=== PATIENT | female | born 1980 | race African-American/Black ===

== ENCOUNTER 2020-02-16 00:16 | Emergency (ER) | payer OTHER, MEDICAID ==
[~2020-02-16] VITALS: Ht 167.6 cm; Wt 84.8 kg
[2020-02-16] MEDS ORDERED: CLONAZEPAM 0.50.5 M1 PO (00:27)
[2020-02-16] MEDS ORDERED: CLONIDINE HCL0.2 M2 PO (00:27)
[2020-02-16] MEDS ORDERED: TRAZODONE 150150 M1 PO (00:27)
[2020-02-16] MEDS ORDERED: LATUDA80 MG PO (00:27)
[2020-02-16] MEDS ORDERED: AMLODIPINE BESY10 MG PO (00:28)
[2020-02-16] MEDS ORDERED: CYMBALTA60 MG PO (00:28)
[2020-02-16] MEDS ORDERED: PROZAC40 MG PO (00:28)
[2020-02-16] MEDS ORDERED: SPIRONOLACTONE25 MG PO (00:28)
[2020-02-16] MEDS ORDERED: CARVEDILOL12.5 MG PO (00:29)
[2020-02-16] MEDS ORDERED: LIPITOR40 MG PO (00:29)
[2020-02-16] MEDS ORDERED: METFORMIN HCL500 M3 PO (00:29)
[2020-02-16] MEDS ORDERED: XULTOPHY 100 UNI3 ML (00:30)
[2020-02-16] MEDS ORDERED: NOVOLOG100 UNIT/M SUBQ (00:30)
[2020-02-16] MEDS ORDERED: LOSARTAN/HCTZ PO (00:31)
[2020-02-16] MEDS ORDERED: CYCLOBENZAPRINE5 MG PO (01:53)
[2020-02-16] MEDS ORDERED: IBUPROFEN 800800 MG PO (01:53)
[2020-02-16 01:58] VITALS: BP 181/89
== END 2020-02-16 01:58 | disposition home or self-care (01) ==
LOC: M.ERS 00:16
DX: S20.211A Contusion of right front wall of thorax, initial encounter (principal); Z88.8 Allergy status to other drugs, medicaments and biological substances; I10 Essential (primary) hypertension; E11.9 Type 2 diabetes mellitus without complications; E78.00 Pure hypercholesterolemia, unspecified; Z90.711 Acquired absence of uterus with remaining cervical stump; X58.XXXA Exposure to other specified factors, initial encounter; Y93.72 Activity, wrestling; Y92.89 Other specified places as the place of occurrence of the external cause; Y99.8 Other external cause status

== ENCOUNTER 2021-02-07 08:53 | Emergency (ER) | payer OTHER, MEDICAID ==
[~2021-02-07] VITALS: Ht 170.2 cm; Wt 85.7 kg
[~2021-02-07 08:53] MED LIST: AMLODIPINE BESY10 MG PO; CARVEDILOL12.5 MG PO; CLONAZEPAM 0.50.5 M1 PO; CLONIDINE HCL0.2 M2 PO; CYCLOBENZAPRINE5 MG PO; CYMBALTA60 MG PO; IBUPROFEN 800800 MG PO; LATUDA80 MG PO; LIPITOR40 MG PO; LOSARTAN/HCTZ PO; METFORMIN HCL500 M3 PO; NOVOLOG100 UNIT/M SUBQ; PROZAC40 MG PO; SPIRONOLACTONE25 MG PO; TRAZODONE 150150 M1 PO; XULTOPHY 100 UNI3 ML
[2021-02-07 09:12] LABS: URINE BILIRUBIN NEGATIVE (Negative); URINE BLOOD TRACE (Negative); URINE CLARITY CLEAR; URINE COLOR YELLOW; URINE GLUCOSE-RANDOM 2+ (Negative); URINE KETONES NEGATIVE (Negative); URINE LEUKOCYTES-REFLEX NEGATIVE (Negative); URINE NITRITE-REFLEX NEGATIVE (Negative); URINE PROTEIN NEGATIVE (Negative); URINE UROBILINOGEN 0.2 E.U./dl (0.2-1.0)
[2021-02-07 09:20] LABS: ABSOLUTE BASOPHILS 0.2 thou/uL (0.0-0.2); ABSOLUTE EOSINOPHILS 0.1 thou/uL (0.0-0.7); ABSOLUTE LYMPHOCYTES 2.4 thou/uL (0.8-5.3); ABSOLUTE MONOCYTES 0.8 thou/uL (0.0-1.2); ABSOLUTE NEUTROPHILS 12.9 thou/uL (1.6-8.1); BASOPHILS 0.9 %; EOSINOPHILS 0.6 %; HEMATOCRIT 44.4 % (37.0-47.0); HEMOGLOBIN 15.1 gm/dL (12.0-15.0); LYMPHOCYTES 14.7 %; MCH 28.8 pg (26.0-34.0); MCHC 33.9 g/dL (28.0-37.0); MCV 84.9 fL (80.0-100.0); MPV 7.4 fl. (7.2-11.1); NUCLEATED RBCS 0 /100WBC; PLATELET COUNT* 405 thou/uL (150-400); POLYS 78.8 %; RBC 5.23 mil/uL (4.20-5.00); WBC 16.3 thou/uL (4.0-11.0)
[2021-02-07 09:25] LABS: CALCIUM 8.8 mg/dL (8.5-10.1); CREATININE 0.9 mg/dL (0.6-1.3); POTASSIUM 4.2 mmol/L (3.5-5.1)
[2021-02-07 09:29] LABS: ALBUMIN 3.6 g/dL (3.4-5.0); TOTAL BILIRUBIN 0.3 mg/dL (<0.1-1.0); TOTAL PROTEIN 8.2 g/dL (6.4-8.2)
[2021-02-07] MEDS ORDERED: HYDROCODON-ACE1 EAC7 PO (10:15)
[2021-02-07] MEDS ORDERED: ZOFRAN ODT4 MG SUBLING (10:15)
[2021-02-07 10:22] VITALS: BP 149/88
--- NOTE | 2021-02-07 16:15 | EKG ---
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
== END 2021-02-07 10:23 | disposition home or self-care (01) ==
LOC: M.ERS 08:53
PROVIDERS: Family Medicine
DX: R10.31 Right lower quadrant pain (principal); M54.5 Low back pain; R11.2 Nausea with vomiting, unspecified; I10 Essential (primary) hypertension; E11.9 Type 2 diabetes mellitus without complications; F31.9 Bipolar disorder, unspecified; E78.00 Pure hypercholesterolemia, unspecified; Z90.711 Acquired absence of uterus with remaining cervical stump; Z90.49 Acquired absence of other specified parts of digestive tract; Z79.899 Other long term (current) drug therapy; Z79.4 Long term (current) use of insulin; Z88.8 Allergy status to other drugs, medicaments and biological substances

== ENCOUNTER 2021-06-12 16:29 | Emergency (ER) | payer OTHER, MEDICAID ==
[~2021-06-12] VITALS: Ht 167.6 cm; Wt 86.2 kg
[~2021-06-12 16:29] MED LIST changes: +HYDROCODON-ACE1 EAC7 PO; +ZOFRAN ODT4 MG SUBLING
[2021-06-12 17:05] LABS: ABSOLUTE EOSINOPHILS 0.1 thou/uL (0.0-0.7); ABSOLUTE LYMPHOCYTES 3.6 thou/uL (0.8-5.3); ABSOLUTE NEUTROPHILS 11.1 thou/uL (1.6-8.1); BASOPHILS 0.2 %; EOSINOPHILS 0.9 %; HEMATOCRIT 44.3 % (37.0-47.0); HEMOGLOBIN 15.2 gm/dL (12.0-15.0); LYMPHOCYTES 22.9 %; MCH 29.3 pg (26.0-34.0); MCHC 34.3 g/dL (28.0-37.0); MCV 85.4 fL (80.0-100.0); MONOCYTES 6.4 %; MPV 7.5 fl. (7.2-11.1); NUCLEATED RBCS 0 /100WBC; PLATELET COUNT* 456 thou/uL (150-400); POLYS 69.6 %; RBC 5.19 mil/uL (4.20-5.00); RDW-CV 13.9 % (10.5-14.5); WBC 15.9 thou/uL (4.0-11.0)
[2021-06-12 17:30] LABS: ACETAMINOPHEN < 2 ug/mL (10-30); ALCOHOL < 10 mg/dL (<10); SALICYLATE 3.2 mg/dL (2.8-20.0)
[2021-06-12 17:40] LABS: CALCIUM 9.3 mg/dL (8.5-10.1); CREATININE 1.5 mg/dL (0.6-1.3); POTASSIUM 3.5 mmol/L (3.5-5.1)
[2021-06-12 17:45] LABS: ALBUMIN 4.4 g/dL (3.4-5.0); TOTAL BILIRUBIN 0.7 mg/dL (<0.1-1.0); TOTAL PROTEIN 8.2 g/dL (6.4-8.2)
[2021-06-12 18:05] LABS: URINE BILIRUBIN NEGATIVE (Negative); URINE BLOOD NEGATIVE (Negative); URINE CLARITY CLEAR; URINE COLOR YELLOW; URINE GLUCOSE-RANDOM NEGATIVE (Negative); URINE KETONES TRACE (Negative); URINE LEUKOCYTES-REFLEX TRACE (Negative); URINE NITRITE-REFLEX POSITIVE (Negative); URINE PROTEIN TRACE (Negative)
[2021-06-12 18:13] LABS: AMP/METHAMP Negative (Negative); BARBITURATES Negative (Negative); BENZODIAZEPINES Negative (Negative); COCAINE Negative (Negative); METHADONE Negative (Negative); OPIATES Negative (Negative); PCP Negative (Negative); THC POSITIVE (Negative)
[2021-06-12 18:17] LABS: BACTERIA-REFLEX >30 Many /HPF (None Seen); HYALINE CASTS >10 Many /LPF (None Seen); SQUAMOUS >10 Many /LPF (0-3)
[2021-06-12 18:18] LABS: CRYSTALS None Seen /LPF (None Seen); MUCUS None Seen strn/LPF (None Seen); URINE RBC None Seen /HPF (0-2)
[2021-06-12 18:19] LABS: URINE WBC-REFLEX 6-15 Few /HPF (0-5)
[2021-06-13 14:30] VITALS: BP 124/88
== END 2021-06-13 14:31 ==
LOC: M.ERS 16:29
PROVIDERS: Family Medicine
DX: F29 Unspecified psychosis not due to a substance or known physiological condition (principal); I10 Essential (primary) hypertension; E11.9 Type 2 diabetes mellitus without complications; Z20.822 Contact with and (suspected) exposure to COVID-19; E78.00 Pure hypercholesterolemia, unspecified; Z79.84 Long term (current) use of oral hypoglycemic drugs; Z79.899 Other long term (current) drug therapy; Z90.711 Acquired absence of uterus with remaining cervical stump

== ENCOUNTER 2021-07-17 21:02 | Inpatient (IN) | payer OTHER, MEDICAID ==
[~2021-07-17] VITALS: Ht 152.4 cm; Wt 88.0 kg
[2021-07-17] MEDS ORDERED: INVEGA1.5 MG PO (21:09)
[2021-07-17 21:10] VITALS: BP 193/113
[2021-07-17 21:42] LABS: ABSOLUTE BASOPHILS 0.2 thou/uL (0.0-0.2); ABSOLUTE EOSINOPHILS 0.3 thou/uL (0.0-0.7); ABSOLUTE LYMPHOCYTES 3.5 thou/uL (0.8-5.3); ABSOLUTE MONOCYTES 0.9 thou/uL (0.0-1.2); ABSOLUTE NEUTROPHILS 9.1 thou/uL (1.6-8.1); BASOPHILS 1.1 %; EOSINOPHILS 1.8 %; HEMATOCRIT 38.1 % (37.0-47.0); HEMOGLOBIN 12.7 gm/dL (12.0-15.0); LYMPHOCYTES 24.9 %; MCH 28.3 pg (26.0-34.0); MCHC 33.2 g/dL (28.0-37.0); MCV 85.3 fL (80.0-100.0); MONOCYTES 6.5 %; MPV 6.9 fl. (7.2-11.1); NUCLEATED RBCS 0 /100WBC; PLATELET COUNT* 406 thou/uL (150-400); POLYS 65.7 %; RBC 4.47 mil/uL (4.20-5.00); RDW-CV 13.6 % (10.5-14.5); WBC 13.8 thou/uL (4.0-11.0)
[2021-07-17 21:50] LABS: CALCIUM 8.5 mg/dL (8.5-10.1); CREATININE 1.2 mg/dL (0.6-1.3); POTASSIUM 4.1 mmol/L (3.5-5.1)
[2021-07-17 22:01] LABS: ALBUMIN 3.2 g/dL (3.4-5.0); MAGNESIUM 1.6 mg/dL (1.8-2.4); TOTAL BILIRUBIN 0.2 mg/dL (<0.1-1.0)
[2021-07-18 01:18] LABS: URINE BILIRUBIN NEGATIVE (Negative); URINE BLOOD NEGATIVE (Negative); URINE CLARITY CLEAR; URINE COLOR YELLOW; URINE GLUCOSE-RANDOM NEGATIVE (Negative); URINE KETONES NEGATIVE (Negative); URINE LEUKOCYTES NEGATIVE (Negative); URINE NITRITE NEGATIVE (Negative); URINE PROTEIN NEGATIVE (Negative); URINE SPECIFIC GRAVITY 1.015 (1.005-1.030); URINE UROBILINOGEN 0.2 E.U./dl (0.2-1.0)
[2021-07-18 01:26] LABS: AMP/METHAMP POSITIVE (Negative); BARBITURATES Negative (Negative); BENZODIAZEPINES Negative (Negative); COCAINE Negative (Negative); METHADONE Negative (Negative); OPIATES POSITIVE (Negative); PCP Negative (Negative); THC POSITIVE (Negative)
[2021-07-18 02:54] VITALS: BP 129/84
[2021-07-18 06:04] VITALS: BP 112/78
[2021-07-18 09:22] VITALS: BP 122/81
--- NOTE | 2021-07-18 09:45 | EKG ---
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 : 1980 Requested By: Carmen Juan Order Number: [id number] MD: Farzad Salomon Measurements Intervals [place] Rate: 124 P: 64 CO: 136 QRS: -18 QRSD: 105 T: 99 QT: 329 QTc: 473 Interpretive Statements Sinus tachycardia Borderline left axis deviation Nonspecific T abnormalities, lateral leads Compared to ECG 02/07/2021 09:28:33 wandering baseline Sinus rhythm no longer present Left ventricular hypertrophy no longer present Electronically Signed On 07-18-2021 9:45:16 CDT by Farzad Salomon [email or web address] <ELECTRONICALLY SIGNED> By: Farzad Salomon MD, FACC 07/18/21 0945 08 08 Farzad Salomon MD, [facility] /EPI
[2021-07-18] MEDS ORDERED: TRILEPTAL300 MG PO (10:54)
[2021-07-18 12:30] VITALS: BP 103/66
--- NOTE | 2021-07-18 13:24 | 2DMMODE ---
[place] [address] 2 D/M-MODE ECHOCARDIOGRAM Name: LYNNETTE ADAMS Room: [address] IN .Km[address]#: [id number] Admission: 07/18/21 Attend Phys: Gregory Bob Discharge: Date of : 76 Date of Service: 07/18/21 1324 Report #: [id number] THIS REPORT FOR: cc: Yared Kwong MD, Jonathan MD Blick,Farzad Long MD [facility] ~ APPROVED REPORT Study performed: 07/18/2021 11:02:08 EXAM: Comprehensive 2D, Doppler, and color-flow Echocardiogram Patient Location: In-Patient Room #: er Status: routine BSA: 1.97 HR: 100 bpm BP: 122/81 mmHg Rhythm: NSR Other Information Study Quality: Good Indications Dyspnea 2D Dimensions IVSd: 11.24 (7-11mm) LVOT Diam: 19.43 (18-24mm) LVDd: 61.40 mm PWd: 9.25 (7-11mm) Ascending Ao: 28.26 (22-36mm) LVDs: 44.28 (25-40mm) Aortic Root: 28.95 mm Volumes Left Atrial Volume (Systole) LA ESV Index: 36.90 mL/m2 Aortic Valve AoV Peak Campbell.: 1.69 m/s AO Peak Gr.: 11.38 mmHg LVOT Max P.53 mmHg AO Mean Gr.: 7.14 mmHg LVOT Mean P.54 mmHg LVOT Max V: 1.18 m/s AO V2 VTI: 32.90 cm LVOT Mean V: 0.72 m/s NATALIA (VTI): 2.14 cm2 LVOT V1 VTI: 23.69 [place] [address] 2 D/M-MODE ECHOCARDIOGRAM Name: LYNNETTE ADAMS Room: [address] IN [facility]#: [id number] Admission: 07/18/21 Attend Phys: Gregory Bob Discharge: Date of : 76 Date of Service: 07/18/21 1324 Report #: [id number] TDI Medial E' Campbell.: 0.07 m/s Lateral E' Campbell.: 0.11 m/s Pulmonary Valve PV Peak Campbell.: 0.90 m/s PV Peak Gr.: 3.23 mmHg Left Ventricle Left ventricle is mildly dilated. There is global hypokinesis of the left ventricle. There is normal left ventricular wall thickness. Left ventricular systolic function is moderately decreased. LVEF is 35-40%. The left ventricular diastolic function is normal. Right Ventricle The right ventricle is normal size. The right ventricular systolic function is normal. Atria Left atrium is mildly dilated. The right atrium size is normal. Aortic Valve The aortic valve is normal in structure. No aortic regurgitation is present. There is no aortic valvular stenosis. Mitral Valve The mitral valve is normal in structure. Mild mitral regurgitation. No evidence of mitral valve stenosis. Tricuspid Valve The tricuspid valve is normal in structure. Trace tricuspid regurgitation. Pulmonic Valve The pulmonary valve is normal in structure. There is no pulmonic valvular regurgitation. Great Vessels The aortic root is normal in size. IVC is normal in size and collapses >50% with inspiration. Pericardium There is no pericardial effusion. <Conclusion> Left ventricle [place] [address] 2 D/M-MODE ECHOCARDIOGRAM Name: LYNNETTE ADAMS Room: [address] IN .R.#: [id number] Admission: 07/18/21 Attend Phys: Gregory Bob Discharge: Date of : 76 Date of Service: 07/18/21 1324 Report #: [id number] LVEF is 35-40%. There is global hypokinesis of the left ventricle. Left atrium is mildly dilated. Mild mitral regurgitation. <ELECTRONICALLY SIGNED> By: Farzad Salomon MD, [facility] 07/18/21 1324 1324 1324 Farzad Salomon MD, FACC /INF
--- NOTE | 2021-07-18 15:03 | CON ---
[address] [address] CONSULTATION Name: LYNNETTE ADAMS Room: [place] [address] ADM IN M.R.#: [id number] Admission: 07/18/21 Attend Phys: Leda Yan Discharge: Date of : 76 Report #: [id number] THIS REPORT FOR: cc: Yared Kwong MD, Jonathan MD Blick,Farzad Long MD [facility] ~ DATE OF CONSULTATION: 07/18/2021 HISTORY OF PRESENT ILLNESS: The patient is a 40-year-old single female who I was asked to see in the Emergency Room today after she complained to being short of breath. The patient notes that about 3 years ago, she was in [place], [place] and complained of chest pain. She apparently underwent a cardiac catheterization from the right radial artery and was found to have no significant coronary artery disease. It was felt her chest pain is noncardiac. She stays very active at this time at work. Recently, she has had increasing shortness of breath, cough, lower extremity edema. She drove herself to the Emergency Room last night and was admitted. She denied any exposure to COVID-19. She has not received the COVID vaccine. She has occasional heaviness in her chest, not related to exertion or meals. There is no radiation of the pain. She notes occasional episodes when her heart race but she has had no syncope. PAST MEDICAL HISTORY: She has had previous hysterectomy, appendectomy, nasal septal repair, laparotomy. She has had upper GI colonoscopy. Hypertension, diabetes, hyperlipidemia. MEDICATIONS: Include Lipitor, clonidine, amlodipine, Aldactone, losartan HCT. ALLERGIES: SHE HAS A PREVIOUS INTOLERANCE TO LISINOPRIL. She does have insulin monitor in place and she is on insulin. FAMILY HISTORY: Father had bypass surgery and atrial fibrillation and her mother had a pacemaker. SOCIAL HISTORY: She lives here in [place]. She is . 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 She quit smoking a month ago, used to smoke a pack of cigarettes a day. No alcohol abuse. No illicit drug use. REVIEW OF SYSTEMS: She has had no history of stroke, asthma, liver disease. She does have chronic kidney disease, no cancer. She is bipolar. She apparently was admitted to [facility] a month ago. She sees a psychiatrist. [place] [address] CONSULTATION Name: LYNNETTE ADAMS Room: [address]#: [id number] Admission: 07/18/21 Attend Phys: Leda Yan Discharge: Date of : 76 Report #: [id number] PHYSICAL EXAMINATION: GENERAL: Revealed a middle-aged female, appeared in no distress. VITAL SIGNS: She had a blood pressure of 130/70, pulse is 90. She is afebrile. HEENT: She was anicteric. Conjunctivae are pink. Mucous membranes moist. NECK: Veins not distended. No carotid bruits. CHEST: Clear to auscultation. HEART: Regular rate and rhythm. No murmur. ABDOMEN: Obese. EXTREMITIES: Had no edema. Dorsalis pedis pulse 3+ bilaterally. SKIN: Cool and dry. NEUROLOGIC: Nonfocal. LABORATORY DATA: Her workup in the Emergency Room last night, she had an ECG that showed sinus tachycardia, nonspecific T-wave changes were noted. IMAGING: Her x-rays, she had a portable chest x-ray that showed mild vascular congestion, possible pneumonitis, small effusion. She had a CT scan of the chest using a PE protocol that showed no pulmonary embolus, interstitial infiltrates, small effusions, possible COVID-19 pneumonitis. Her lab work, creatinine is 1.2. Her high sensitivity troponin was 24. BNP 996. Her urine drug screen was positive for methamphetamines, opiates, marijuana. Hemoglobin 12.7. Her COVID antigen stat test was negative. Her urinalysis was negative for protein, many bacteria, few white blood cells. IMPRESSION AND RECOMMENDATIONS: 1. Shortness of breath. Recommend echocardiogram. 2. Cough. Possible bronchitis. 3. Chest pressure. Suspect noncardiac. Negative heart catheterization 3 years ago in [place], [place]. 4. Hypertension. The patient is on clonidine, amlodipine, Aldactone, ARB and diuretic. 5. Diabetes mellitus. The patient is on insulin. 6. Hyperlipidemia. The patient is on a statin drug. 7. Obesity. 8. Tobacco abuse. Fortunately, the patient quit smoking a month ago. 9. Evidence of illicit drug use, which the patient denies. 10. History of bipolar disorder. <ELECTRONICALLY SIGNED> By: Farzad Salomon MD, FACC 07/18/21 1503 0746 [id number] Ethan Salomon MD, FACC /nt
[2021-07-18 16:08] VITALS: BP 99/60
[2021-07-18 20:00] VITALS: BP 110/64
[2021-07-19] VITALS (8 sets, daily range): BP systolic 91–114; BP diastolic 50–93
[2021-07-19 02:12] LABS: HEMATOCRIT 36.9 % (37.0-47.0); HEMOGLOBIN 11.9 gm/dL (12.0-15.0); MCH 27.6 pg (26.0-34.0); MCHC 32.1 g/dL (28.0-37.0); MPV 7.1 fl. (7.2-11.1); RBC 4.3 mil/uL (4.20-5.00); RDW-CV 13.9 % (10.5-14.5); WBC 23.7 thou/uL (4.0-11.0)
[2021-07-19 02:45] LABS: CALCIUM 8.8 mg/dL (8.5-10.1); CREATININE 1.1 mg/dL (0.6-1.3); MAGNESIUM 1.9 mg/dL (1.8-2.4); TOTAL BILIRUBIN 0.2 mg/dL (<0.1-1.0); TOTAL PROTEIN 6.7 g/dL (6.4-8.2)
--- NOTE | 2021-07-19 11:05 | NUR ---
ARRIVED AT 1030.ALERT AND ABLE TO MAKE NEEDS KNOWN. CALL LIGHT WITHIN REACH. DENIES CP OR SOB.
[2021-07-19 12:59] LABS: BE -0.5 mmol/L (-2 to +3); pH 7.407 (7.340-7.450)
[2021-07-19 13:00] LABS: PO2 59.6 mmHg (75.0-100.0)
[2021-07-20 04:00] VITALS: BP 97/66
[2021-07-20 08:00] VITALS: BP 111/76
--- NOTE | 2021-07-20 10:06 | NUR ---
The patient is alert. Able to make needs known. Up ad ramsey. Denies CP or SOB. Call light within reach. SR on the monitor.
[2021-07-20 10:47] LABS: CALCIUM 8.7 mg/dL (8.5-10.1); CREATININE 1.1 mg/dL (0.6-1.3)
[2021-07-20 12:21] VITALS: BP 112/76
[2021-07-20] MEDS ORDERED: CLONIDINE HCL0.1 MG PO (12:34)
[2021-07-20] MEDS ORDERED: LASIX 40 MG TAB40 M2 PO (12:34)
[2021-07-20 12:48] VITALS: BP 112/76
--- NOTE | 2021-07-20 14:47 | NUR ---
Discharge insructions given. Verbalized understanding. Wheeled to private car. IV access removed. lunchroom monitor removed.
== END 2021-07-20 15:00 | disposition home or self-care (01) | DRG 177 ==
LOC: M.ERS 21:02 → M.ORTHSURG 07-18 00:06 → M.TBA-ER 07-18 00:06 → M.ORTHSURG 07-19 10:29
PROVIDERS: Emergency Medicine; Internal Medicine; Internal Medicine Cardiovascular Disease; ADMIT Internal Medicine; ATTEND Internal Medicine
DX: J69.0 Pneumonitis due to inhalation of food and vomit (principal); J96.01 Acute respiratory failure with hypoxia; I50.23 Acute on chronic systolic (congestive) heart failure; I16.0 Hypertensive urgency; Z20.822 Contact with and (suspected) exposure to COVID-19; I11.0 Hypertensive heart disease with heart failure; E11.9 Type 2 diabetes mellitus without complications; F31.9 Bipolar disorder, unspecified; E78.5 Hyperlipidemia, unspecified; E78.00 Pure hypercholesterolemia, unspecified; Z90.710 Acquired absence of both cervix and uterus; Z90.49 Acquired absence of other specified parts of digestive tract; Z88.8 Allergy status to other drugs, medicaments and biological substances; Z87.891 Personal history of nicotine dependence; Z91.14 Patient's other noncompliance with medication regimen